=== PATIENT | male | born 1985 | race African-American/Black ===

== ENCOUNTER 2017-12-16 22:34 | Emergency (ER) | payer BC ==
[~2017-12-16] VITALS: Ht 170.2 cm; Wt 90.7 kg
--- NOTE | 2017-12-16 22:48 | NUR ---
PT BB SELF WITH C/O L SIDED CP INTERMITTENT - RETURNED WITH DEEP BREATH. 04/27. SKIN WNL. AAOX4. NO DIAPHORESIS NOTE. RESP EVEN AND NON LABORED. NO S/S OF ACUTE DISTRESS NOTED. AWAITNG MD CROCKETT.
[2017-12-16] MEDS ORDERED: ONDANSETRON HCL/PF 4 MG/2 ML VIAL ONE (23:28)
[2017-12-16] MEDS ORDERED: ASPIRIN 325 MG TABLET ONE (23:29)
[2017-12-16] MEDS ORDERED: MORPHINE SULFATE INJ 4 MG/ML DISP.SYRIN ONE (23:29)
[2017-12-16] MEDS ORDERED: ONDANSETRON HCL/PF 4 MG/2 ML VIAL IVP ONE (23:30)
[2017-12-16] MEDS ORDERED: IV NS 0.9% 1,000 ML BAG IV ONE (23:30)
[2017-12-16] MEDS ORDERED: ASPIRIN 325 MG TABLET PO ONE (23:30)
[2017-12-16] MEDS ORDERED: MORPHINE SULFATE INJ 2 MG/ML DISP.SYRIN IV ONE (23:30)
[2017-12-16 23:46] LABS: BASOPHILS % (AUTO) 0.7 % (0.0-2.0); EOSINOPHILS # (AUTO) 0.1 /CMM (0.0-0.7); EOSINOPHILS % (AUTO) 1.8 % (0.0-6.0); HEMATOCRIT 46 % (39-51); HEMOGLOBIN 16.1 g/dL (13.5-17.5); LYMPHOCYTES # (AUTO) 2.3 /CMM (0.8-4.8); LYMPHOCYTES % (AUTO) 33.8 % (20.0-44.0); MEAN CORPUSCULAR HEMOGLOBIN 32 PG (26.0-33.0); MEAN CORPUSCULAR HGB CONC 35 g/dl (31.0-36.0); MEAN CORPUSCULAR VOLUME 91 fL (80-96); MONOCYTES # (AUTO) 0.6 /CMM (0.1-1.30); MONOCYTES % (AUTO) 8.6 % (2.0-12.0); NEUTROPHILS # (AUTO) 3.7 /CMM (1.8-8.9); NEUTROPHILS % (AUTO) 55.1 % (43.0-81.0); PLATELET COUNT (AUTO) 175 /CMM (150-450); RDW COEFFICIENT OF VARIATION 13.3 (11.5-15.0); RED BLOOD CELL COUNT(AUTO) 5.09 MIL/uL (4.5-6.0); WHITE BLOOD COUNT (AUTO) 6.8 K/uL (4.3-11.0)
[2017-12-17 00:06] LABS: TROPONIN I < 0.017 ng/mL (0.00-0.056)
[2017-12-17 00:08] LABS: CALCIUM, SERUM 9.4 mg/dL (8.5-10.1); CARBON DIOXIDE 26 mmol/L (21-32); CHLORIDE 104 mmol/L (98-107); CREATININE 1.3 mg/dL (0.6-1.3); GLUCOSE 98 mg/dL (74-106); POTASSIUM 4.2 mmol/L (3.5-5.1); SODIUM SERUM 139 mmol/L (136-145); UREA NITROGEN, BLOOD 16 mg/dL (7-18)
[2017-12-17] MEDS ORDERED: OMEG1CAP55 PO (00:11)
[2017-12-17] MEDS ORDERED: ISOSORBIDE DN PO (00:11)
[2017-12-17] MEDS ORDERED: CALC667C6 PO (00:11)
[2017-12-17 00:12] LABS: ALANINE AMINOTRANSFERASE 27 U/L (12-78); ALKALINE PHOSPHATASE 49 U/L (46-116); ASPARTATE AMINOTRANSFERASE 25 U/L (15-37); BILIRUBIN,DIRECT 0.1 mg/dL (0.0-0.2); BILIRUBIN,TOTAL 0.6 mg/dL (0.2-1.0); TOTAL PROTEIN, SERUM 8.5 g/dL (6.4-8.2)
[2017-12-17 00:15] LABS: D-DIMER 1.21 mg/L(FEU (0.17-0.50); INR 1.01 (0.87-1.13)
[2017-12-17] MEDS ORDERED: FOLI1TAB16 PO (00:16)
[2017-12-17] MEDS ORDERED: NIFE60TA69 PO (00:16)
[2017-12-17] MEDS ORDERED: ALBU18HF2 INH (00:16)
[2017-12-17] MEDS ORDERED: OLME20TA21 PO (00:16)
[2017-12-17] MEDS ORDERED: ERGO400T7 PO (00:16)
[2017-12-17] MEDS ORDERED: ASPI-1152 PO (00:16)
[2017-12-17] MEDS ORDERED: NITR0.4T48 SL (00:16)
[2017-12-17] MEDS ORDERED: TAMS0.4C34 PO (00:16)
[2017-12-17] MEDS ORDERED: CLOP75TA15 PO (00:16)
[2017-12-17] MEDS ORDERED: CT SWABBABLE VALVE TRANS SET 1 EA INFUS.SET MC ONE (00:43)
[2017-12-17] MEDS ORDERED: IOHEXOL-350 100 ML VIAL IV ONE (00:43)
[2017-12-17] MEDS ORDERED: IV NS 0.9% 500 ML IV ONE (00:44)
--- NOTE | 2017-12-17 00:45 | NUR ---
Patient is resting comfortably in bed with eyes closed. Easily aroused. VSS. Friend bedside
--- NOTE | 2017-12-17 02:57 | NUR ---
Patient discharged to home in stable condition. Written and verbal after care instructions given. Patient verbalizes understanding of instruction.IV removed. Catheter intact and site benign. Pressure and 4x4 applied to site. No bleeding noted. pt ambulated with steady gait accompanied by friend.
[2017-12-17 02:58] VITALS: BP 122/84
== END 2017-12-17 02:59 | disposition home or self-care (01) ==
LOC: ER 22:36
DX: R07.89 Other chest pain (principal); F10.10 Alcohol abuse, uncomplicated; Z79.82 Long term (current) use of aspirin
CPT/HCPCS: 36415; 71045-TC; 80048-TC; 80076-TC; 84484-TC; 85025-TC; 85378-TC; 85730-TC; A4606; J2270; J2405; J7030; J7040; Q9967; Z7610